=== PATIENT | female | born 1945 | race Caucasian/White ===

== ENCOUNTER 2025-01-18 11:04 | Emergency (ER) | payer MEDICARE, OTHER, SELFPAY ==
[2025-01-18 11:09] VITALS: BP 190/89
--- NOTE | 2025-01-18 11:43 | ED.GENMED ---
History of Present Illness
General
Chief Complaint: Facial Problem
Source: patient
Time Seen by Provider: 01/18/25 11:30
History of Present Illness
History of Present Illness:
Note:
CHIEF COMPLAINT(S)
Pain from the ear extending into the neck, difficulty opening mouth fully due to increased pain.
HISTORY OF PRESENT ILLNESS
The patient is an 79-year-old female presenting with pain extending from the ear into the jaw and neck, accompanied by difficulty in opening her mouth fully, which exacerbates the pain. She describes the pain as a dull throbbing pain that is
intermittently sharp. The symptoms began this morning around 3am and have been persistent since. The pain is reproducible upon palpation of the face, and she reports a clicking or punching sensation when trying to open her jaw. The patient has never
experienced anything like this before and does not recall any specific trigger or precipitating event such as trauma or dental work. She denies fever, tick bites although states she did have a tick crawling on her 2 weeks ago, or rashes. The patient
has a past medical history significant for cardiac surgery, which occurred in 2017 at [facility]. She is not on any blood-thinning medications and reports a history of bleeding ulcers, which limits her use of ibuprofen. She denies
neurovascular issues such as stroke or aneurysms including no family history of this as well
SOCIAL HISTORY
The patient does not use tobacco. She reports nightly 1 glass of wine, and denies the use of illegal substances.
REVIEW OF SYSTEMS
- Head and Neck: Pain from ear extending into the neck, difficulty opening the mouth fully, clicking or punching sensation in the jaw.
- Neurological: No history of strokes, aneurysms, or unusual neurological symptoms like facial weakness.
Past History
Past History
ED Past Medical History: Arrthythmia (Atrial fibrillation), HTN, Valvular disease and Other (Peptic ulcer disease, obstructive hypertrophic cardiac myopathy, DVT, PE)
ED Past Surgical History: Cardiac, Orthopedic and Other (partial hyseterectomy)
Social History
Tobacco: Former smoker
Alcohol: Daily
Drug: None
Personal:
Living: with family
Employment: Retired
Family History
Family History: Unable to obtain
Review of Systems
Review of Systems
All Other Systems: ROS reviewed and negative except as documented in HPI and ROS
Phy Exam
Physical Exam
Physical Exam:
GENERAL: Alert , in no apparent distress but does appear uncomfortable especially with any attempted mastication
HEAD: NCAT
EYE: pupils equal and reactive, 4mm bilateral
NECK: Supple, no significant adenopathy. no JVD
ENT: o/p clr, mmm. filling noted to left posterior molar, no dental abscesses. 2 finger trismus. Pain with palpation over left TMJ but with no overlying erythema/edema, tympanic membrane's clear bilaterally
CARDIAC: Regular rate and rhythm .
LUNGS: Clear breath sounds bilaterally, no acute respiratory distress, no wheezes/rales/rhonchi
NEUROLOGICAL: Alert and oriented
SKIN: Warm and dry, skin intact.
MUSCULOSKELETAL: well perfused.
PSYCH: Normal and appropriate interaction.
Scores
Heart Failure Risk
Heart Failure Risk Score: Not Applicable
Heart Score for Chest Pain Patients
STEMI patient?: Not applicable
Withdrawal Assessment of Alcohol
Withdrawal Assessment Completed?: Not applicable
Course
Orders/Labs/Results
Orders:
Orders
01/18/25 11:05
Electrocardiogram (*1) Urgent
Reason for Study: Other
Other Reason for Exam: jaw pain
EKG- Treatment ONCE
01/18/25 11:42
Oxycodone/Acetaminophen [Percocet 5/325] 1 tablet PO NOW STA
01/18/25 12:11
Basic Metabolic Panel Urgent
Complete Blood Count/With Diff Urgent
Lyme Progressive Urgent
Troponin I Urgent
Abnormal Lab Results
01/18/25
12:11
MCH 31.1 H pg
(27.0-31.0)
MPV 10.5 H fL
(7.4-10.4)
Lymphocytes % 17.7 L %
(20.5-51.1)
Chloride 110 H mmol/L
(98-107)
BUN 20 H mg/dl
(7-17)
01/18/25 12:11
01/18/25 12:11
Vital Signs
Initial and Last Documented VS:
Initial Vital Signs
Temp Pulse Resp BP Pulse Ox
98.3 F 88 16 190/89 98
01/18/25 11:09 01/18/25 11:09 01/18/25 11:09 01/18/25 11:09 01/18/25 11:09
Last Documented Vital Signs
Temp Pulse Resp BP Pulse Ox
98.3 F 71 13 156/66 95
01/18/25 11:09 01/18/25 13:45 01/18/25 13:45 01/18/25 13:00 01/18/25 13:45
MDM/Problems Addressed
Differential Diagnosis Includes:
1. Temporomandibular joint disorder
2. Trigeminal neuralgia
3. Vance palsy
4. Lyme disease
5. Dental abscess
6. Sinusitis
7. Mastoiditis
8. Vascular disorder
9. Ear infection
10. Facial nerve disorder
MDM/Problems Addressed:
Patient presenting to the emergency department for evaluation of left-sided facial pain that began earlier this morning, did not attempt any medications prior to arrival. Hypertension in triage noted. Given the reproducibility of the pain with
mastication as well as palpation of the TMJ I do suspect this is the most likely diagnosis however considering trigeminal neuralgia, given the tick on the patient the other day precursor to Cortes's palsy considered. Patient does have some previous
dental work noted but there is no obvious signs of dental abscesses. I am considering vascular etiology however thought to be less likely, consulting with attending, Dr. Louis, to discuss further imaging studies.
*Pulse Oximetry
Patient hypoxic: no
*Critical Care Note
Total Time (30-74mins, 75-104mins- exclusive of procedures): Not Applicable
Data Reviewed
Review of Other/Old Records Reveals: Labs and Records
Patient Management
Escalation/DeEscalation of care consider admission/obs:
Lab work reassuring. Patient noting moderate relief of pain following Percocet. Will prescribe her this to be discharged home. See Dr. Louis's note. Will also prescribe Zithromax to cover for any potential ENT infection. Stable for discharge
and outpatient follow-up.
ED Attending Note
-
Portions of this chart may have been created with voice recognition software.� Occasional wrong word or��sound alike� substitutions may have occurred due to the inherent limitations of voice recognition software.
Discharge Plan
Departure
Patient Disposition: Home (Routine Discharge)
Date of Disposition: 01/18/25
Time of Disposition: 12:53
Patient with high blood pressure during this ER visit?: Yes
Discharge Problem:
Jaw pain
Instructions: Temporomandibular Joint (TMJ) Disorders (DC)
Prescriptions:
New
oxycodone-acetaminophen [Percocet] 5-325 mg tablet
1 tab PO Q6HPRN PRN (Reason: pain) Qty: 8 0RF
azithromycin [Zithromax Z-Harpreet] 250 mg tablet
See Rx Instructions .ROUTE .COMPLEX Qty: 6 0RF
Rx Instructions:
Take 2 tabs day 1, Take 1 tab remaining 4 days
No Action
pantoprazole 40 MG tablet,delayed release (DR/EC)
40 mg PO DAILY
cyanocobalamin (vitamin B-12) 100 MCG tablet
1,000 mcg PO DAILY
cholecalciferol (vitamin D3) 2,000 UNITS tablet
2,000 units PO DAILY
atorvastatin 20 mg Tablet
20 mg PO QPM
metoprolol succinate 50 mg Tablet Extended Release 24 Hr
25 mg PO QPM
diphenhydramine-acetaminophen [Tylenol PM Extra Strength] 25-500 mg Tablet
1 tab PO HS PRN (Reason: sleep)
PreserVision AREDS-2 250-90-40-1 mg Capsule
1 tab PO AMHS
Artificial Tears (cmc) 1 % Drops
1 drp OPHTHALMIC (EYE) BID
acetaminophen [Tylenol] 325 mg Tablet
650 mg PO Q4H PRN (Reason: pain)
Referrals:
Tae Eaton MD [Family Provider, Family Practice]
Interventions
Interventions:
*Risk Screen - Suicide Last Done: 01/18/25 11:09
*General Assessment Last Done: 01/18/25 11:09
*Neglect/Abuse Screening Last Done: 01/18/25 11:09
*ED- Fall Risk Assessment Last Done: 01/18/25 12:17
*ED COVID-19 Vaccine History Last Done: 01/18/25 12:17
*Nursing Disposition Last Done: 01/18/25 13:53
ED- Neurological Assessment Last Done: 01/18/25 12:17
ED-Skin Assessment Last Done: 01/18/25 12:17
Discharge Date and Time
Discharge Date/Time: 01/18/25 14:02
Print Language: MACEDONIAN
[2025-01-18 12:06] VITALS: BP 145/74
[2025-01-18] MEDS: PERCOCET 5/325 1 TABLET PO (12:16)
[2025-01-18 12:17] VITALS: BMI 25.9
[2025-01-18 12:22] LABS: % Basophils 0.4 % (0-2); % Eosinophils 1.2 % (0-6); % Immature Granulocytes 0.3 % (0-0.5); % Lymphocytes 17.7 % (20.5-51.1); % Monocytes 8.1 % (1.7-9.3); % Neutrophils 72.3 % (42.2-75.2); Absolute Eosinophils 0.1 10^3/uL (0-0.7); Absolute Lymphocytes 1.3 10^3/uL (1.2-3.4); Absolute Monocytes 0.6 10^3/uL (0.1-0.6); Absolute Neutrophils 5.3 10^3/uL (1.4-6.5); Hematocrit 40.5 % (37.0-47.0); Hemoglobin 13.8 g/dL (12.0-16.0); Mean Corp Hgb Conc. 34.1 g/dL (33.0-37.0); Mean Corpuscular Hgb 31.1 pg (27.0-31.0); Mean Corpuscular Volume 91.2 fL (81.0-99.0); Mean Platelet Volume 10.5 fL (7.4-10.4); Nucleated Red Blood Cells % 0 %; Platelet Count 188 10^3/uL (130-400); Red Blood Cell Count 4.44 10^6/uL (4.20-5.40); Red Cell Dist. Width 13.5 % (11.5-14.5); White Blood Cell Count 7.3 10^3/uL (4.8-10.8)
[2025-01-18 12:35] LABS: Blood Urea Nitrogen 20 mg/dl (7-17); Calcium 9.3 mg/dl (8.4-10.2); Carbon Dioxide 26 mmol/L (22-30); Chloride 110 mmol/L (98-107); Estimated Creatinine Clearance 68 ml/min; Glucose 94 mg/dl (70-99); Potassium 3.9 mmol/L (3.5-5.1); Sodium 139 mmol/L (135-145); eGFR > 60.00
[2025-01-18 12:51] LABS: Troponin I < 0.012 ng/ml
[2025-01-18 13:00] VITALS: BP 156/66
[2025-01-20 13:45] LABS: Lyme Antibody Screen, EIA Presump. Positive (Negative)
== END 2025-01-18 14:02 | disposition home or self-care (01) ==
LOC: EMR 11:04
PROVIDERS: Physician Assistant Medical; EMERGENCY PHYSICIAN Emergency Medicine; FAMILY PHYSICIAN Family Medicine
DX: R68.84 Jaw pain (principal); I48.91 Unspecified atrial fibrillation; I10 Essential (primary) hypertension; I42.8 Other cardiomyopathies; Z87.11 Personal history of peptic ulcer disease; Z86.718 Personal history of other venous thrombosis and embolism; Z86.711 Personal history of pulmonary embolism; Z87.891 Personal history of nicotine dependence
CPT/HCPCS: 99283; 80048; 84484; 85025; 86617; 86618; 93005

== ENCOUNTER 2025-08-02 10:35 | Inpatient (IN) | payer MEDICARE, OTHER, SELFPAY ==
[2025-07-31] VITALS (7 sets, daily range): BP systolic 123–155; BP diastolic 57–84; BMI 26.1; BMI 25.2
[2025-07-31 15:47] LABS: Hematocrit 37.8 % (37.0-47.0); Hemoglobin 12.9 g/dL (12.0-16.0); Mean Corp Hgb Conc. 34.1 g/dL (33.0-37.0); Mean Corpuscular Volume 88.1 fL (81.0-99.0); Nucleated Red Blood Cells % 0 %; Platelet Count 174 10^3/uL (130-400); Red Cell Dist. Width 13.9 % (11.5-14.5)
--- NOTE | 2025-07-31 16:07 | ED.GENMED ---
History of Present Illness
<Diane Carpio FUSE COILER - Last Filed: 07/31/25 18:20>
General
Chief Complaint: Weakness
Source: patient
Exam Limitations: none
Time Seen by Provider: 07/31/25 16:06
Nursing documentation reviewed up to this point in time: agreed with
History of Present Illness
History of Present Illness:
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
democrat. Had chills but no fever. Denies CP, does have WHYTE. Denies n/v/d/c. Denies abdominal pain. No known sick contacts.
Past History
<Diane Carpio, FUSE COILER - Last Filed: 07/31/25 18:20>
Past History
ED Past Medical History: Arrthythmia (Atrial fibrillation), HTN, Valvular disease and Other (Peptic ulcer disease, obstructive hypertrophic cardiac myopathy, DVT, PE)
ED Past Surgical History: Cardiac, Orthopedic and Other (partial hyseterectomy)
Social History
Tobacco: Former smoker
Alcohol: Daily
Drug: None
Personal:
Living: with family
Employment: Retired
Family History
Family History: Unable to obtain
Review of Systems
<Diane Carpio, FUSE COILER - Last Filed: 07/31/25 18:20>
Review of Systems
Allergies reviewed?: Yes
All Other Systems: ROS reviewed and negative except as documented in HPI and ROS
Phy Exam
<Diane Carpio, FUSE COILER - Last Filed: 07/31/25 18:20>
Physical Exam
Physical Exam:
GENERAL: No acute distress. A&Ox3.
CONSTITUTIONAL: Afebrile.
EYES: clear, conjunctivae normal
ENMT: moist mucus membranes, Pharynx nl, mildly stuffy nasal voice.
RESPIRATORY: Regular respirations, nonlabored, lungs clear.
CARDIOVASCULAR: Regular rate and rhythm, no murmurs, no rubs.
GI: Soft, nontender, normal BS
MUSCULOSKELETAL: Moves with ease. Well perfused.
SKIN: Warm, dry, pink
PSYCH: Normal mood and affect. Well kept, interactive and appropriate
NEUROLOGIC: Awake, alert and oriented. No focal neurological deficits
Course
<Diane Carpio, FUSE COILER - Last Filed: 07/31/25 18:20>
Orders/Labs/Results
Orders:
Orders
07/31/25 14:27
Electrocardiogram (*1) Urgent
Reason for Study: Vertigo / Dizzy
EKG- Treatment ONCE
07/31/25 15:21
CR Chest - 2 Views Urgent
Comment:
Reason For Exam: respiratory distress
07/31/25 15:38
Complete Blood Count/With Diff Urgent
Comprehensive Metabolic Panel Urgent
Lactic Acid Q4H
Comment: WITH 1ST SET OF BLOOD CULTURES,CANCEL 2ND LACTIC ACID IF FIRST <2
NT-proBNP Urgent
Influenza A+B Rapid Molecular Urgent
JENNIFER Source: Nasal Swab
Specimen Description:
07/31/25 16:34
Oseltamivir Phosphate [Tamiflu] 75 mg PO NOW STA
07/31/25 17:03
COVID-19 Antigen Urgent
Source: Nasal Swab
07/31/25 17:26
Admit/Transfer Patient As Directed
Co-Sign Provider:
Level of Care: Observation services
Assign to:: Medical/Surgical
Physician / Group: yaritza
Diagnosis: influenza
Code Status As Directed
Resuscitation Status: Do not resuscitate
Reached after discussion with pt or family/Healthcare POA: Yes
DNR Bracelet Application ONCE
PRN Pain Medication Management As Directed
May give lesser potent ordered pain med per pt: Yes
preference::
Protocol:: Medication orders for pain may be administered in a
manner that supports deferring to patient preference
when the pt is:
- Requesting an ordered lesser potent pain medication.
Least to most potent pain medications are defined
as: acetaminophen < NSAID < tramadol < opioids
(morphine, oxycodone, hydromorphone).
- Requesting a lesser dose of the same medication IF
ORDERED.
- Requesting a less intrusive route of administration
if both routes are prescribed by the provider (PO <
IV).
07/31/25 19:30
Lactic Acid Q4H
Comment: WITH 1ST SET OF BLOOD CULTURES,CANCEL 2ND LACTIC ACID IF FIRST <2
Abnormal Lab Results
07/31/25
15:38
Absolute Lymphs (auto) 0.3 L 10^3/uL
(1.2-3.4)
Neutrophils % 89.4 H %
(42.2-75.2)
Lymphocytes % 4.0 L %
(20.5-51.1)
Sodium 134 L mmol/L
(135-145)
Total Protein 6.2 L g/dl
(6.3-8.2)
07/31/25 15:38
07/31/25 15:38
Vital Signs
Initial and Last Documented VS:
Initial Vital Signs
Temp Pulse Resp BP Pulse Ox
98.2 F 94 18 140/68 94
07/31/25 14:23 07/31/25 14:23 07/31/25 14:23 07/31/25 14:23 07/31/25 14:23
Last Documented Vital Signs
Temp Pulse Resp BP Pulse Ox
98.2 F 95 28 149/64 93
07/31/25 14:23 07/31/25 17:00 07/31/25 16:30 07/31/25 16:00 07/31/25 16:43
<Cheyenne Quiroga MD - Last Filed: 07/31/25 17:04>
Orders/Labs/Results
Orders:
Orders
07/31/25 14:27
Electrocardiogram (*1) Urgent
Reason for Study: Vertigo / Dizzy
EKG- Treatment ONCE
07/31/25 15:21
CR Chest - 2 Views Urgent
Comment:
Reason For Exam: respiratory distress
07/31/25 15:38
Complete Blood Count/With Diff Urgent
Comprehensive Metabolic Panel Urgent
Lactic Acid Q4H
Comment: WITH 1ST SET OF BLOOD CULTURES,CANCEL 2ND LACTIC ACID IF FIRST <2
NT-proBNP Urgent
Influenza A+B Rapid Molecular Urgent
JENNIFER Source: Nasal Swab
Specimen Description:
07/31/25 16:34
Oseltamivir Phosphate [Tamiflu] 75 mg PO NOW STA
07/31/25 17:03
COVID-19 Antigen Urgent
Source: Nasal Swab
07/31/25 17:26
Admit/Transfer Patient As Directed
Co-Sign Provider:
Level of Care: Observation services
Assign to:: Medical/Surgical
Physician / Group: yaritza
Diagnosis: influenza
Code Status As Directed
Resuscitation Status: Do not resuscitate
Reached after discussion with pt or family/Healthcare POA: Yes
DNR Bracelet Application ONCE
PRN Pain Medication Management As Directed
May give lesser potent ordered pain med per pt: Yes
preference::
Protocol:: Medication orders for pain may be administered in a
manner that supports deferring to patient preference
when the pt is:
- Requesting an ordered lesser potent pain medication.
Least to most potent pain medications are defined
as: acetaminophen < NSAID < tramadol < opioids
(morphine, oxycodone, hydromorphone).
- Requesting a lesser dose of the same medication IF
ORDERED.
- Requesting a less intrusive route of administration
if both routes are prescribed by the provider (PO <
IV).
07/31/25 19:30
Lactic Acid Q4H
Comment: WITH 1ST SET OF BLOOD CULTURES,CANCEL 2ND LACTIC ACID IF FIRST <2
Abnormal Lab Results
07/31/25
15:38
Absolute Lymphs (auto) 0.3 L 10^3/uL
(1.2-3.4)
Neutrophils % 89.4 H %
(42.2-75.2)
Lymphocytes % 4.0 L %
(20.5-51.1)
Sodium 134 L mmol/L
(135-145)
Total Protein 6.2 L g/dl
(6.3-8.2)
07/31/25 15:38
07/31/25 15:38
Vital Signs
Initial and Last Documented VS:
Initial Vital Signs
Temp Pulse Resp BP Pulse Ox
98.2 F 94 18 140/68 94
07/31/25 14:23 07/31/25 14:23 07/31/25 14:23 07/31/25 14:23 07/31/25 14:23
Last Documented Vital Signs
Temp Pulse Resp BP Pulse Ox
98.2 F 95 28 149/64 93
07/31/25 14:23 07/31/25 17:00 07/31/25 16:30 07/31/25 16:00 07/31/25 16:43
<Diane Gardner Day, FUSE COILER - Last Filed: 07/31/25 18:20>
MDM/Problems Addressed
Differential Diagnosis Includes:
Covid, Flu, PNA
MDM/Problems Addressed:
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
democrat. Had chills but no fever. Denies CP, does have WHYTE. Denies n/v/d/c. Denies abdominal pain. No known sick contacts.
Afebrile, NAD
CBC normal
CMP Normal
Covid neg
Flu A positive
BNP WNL
4:30 PM:
Patient out of bed and ambulated to the bathroom, desaturated to 84%, back in bed and when resting O2 is 90 on room air, placed on 2 L nasal cannula oxygen
Plan: Tamiflu added and admit.
Flu A with hypoxemia
Hospitalist notified of admission.
CXR official read pending
<Diane Carpio FUSE COILER - Last Filed: 07/31/25 18:20>
*Pulse Oximetry
SaO2: 97
Nasal Cannula flow liters per minute: 2
Oxygen Mode of Delivery: Room air
Patient hypoxic: no
*EKG
EKG Intrepretation Date: 07/31/25
Interpretation: abnormal
Heart Rate: 90
Rate: tachycardiac
Rhythm: sinus
Milfay: normal axis
Interval: normal interval
QRS Pattern: wide non-specific
Ischemia: no ischemia
*Critical Care Note
Total Time (30-74mins, 75-104mins- exclusive of procedures): Not Applicable
ED Attending Note
<Diane Carpio, FUSE COILER - Last Filed: 07/31/25 18:20>
-
Portions of this chart may have been created with voice recognition software.� Occasional wrong word or��sound alike� substitutions may have occurred due to the inherent limitations of voice recognition software.
<Cheyenne Quiroga MD - Last Filed: 07/31/25 17:04>
ED Attending Note
Patient seen and examined by attending physician: Yes
I performed the substantive portion of visit, reviewed & personally made and approve the management plan that is documented in note by myself or LYNETTE.: Yes
ED Attending Note:
I have seen and evaluated the patient with a [id number] encounter. I have spoken to the [LYNETTE] and involved in the medical history, the physical exam, medical decision making.
Evaluation and management service: agree unless noted differently below.
Results interpretation: agree unless noted differently below.
80-year-old woman presenting to the emergency department with nausea cough dizziness and weakness for the past day. Patient denies any fevers chills. No chest pain. No shortness of breath. No known sick contacts. My evaluation patient is
resting comfortably. She does appear congested. Lungs are clear to auscultation bilaterally. Abdomen soft nondistended nontender. Concern for viral illness such as the flu versus dehydration or metabolic derangements. Blood work was obtained
prior to my evaluation. She is flu positive. Upon ambulation patient with significant desaturation. Patient will need admission. Will give Tamiflu.
Discharge Plan
Departure
Patient Disposition: Admit
Date of Disposition: 07/31/25
Time of Disposition: 16:51
Admit to: Med/Surg
Presentation/result/management discussed w/ accepting MD/DO: Hospitalist
Patient with high blood pressure during this ER visit?: No
Condition: Fair
Covid-19: Negative COVID-19
Discharge Problem:
Influenza A, Acute hypoxic respiratory failure
Interventions
Interventions:
*General Assessment Last Done: 07/31/25 14:43
*Neglect/Abuse Screening Last Done: 07/31/25 14:43
*ED COVID-19 Vaccine History Last Done: 07/31/25 14:42
*ED Influenza Vaccine History Last Done: 07/31/25 14:42
[facility] Risk Assessment Tool Last Done: 07/31/25 14:42
ED- Cardiac Assessment Last Done: 07/31/25 14:44
ED- Neurological Assessment Last Done: 07/31/25 14:47
ED- Pulmonary Assessment Last Done: 07/31/25 14:46
[2025-07-31 16:11] LABS: ALT (SGPT) 21 U/L (0-35); AST (SGOT) 27 U/L (14-36); Albumin 3.7 g/dl (3.5-5.0); Alkaline Phosphatase 113 U/L (38-126); Blood Urea Nitrogen 14 mg/dl (7-17); Calcium 9.0 mg/dl (8.4-10.2); Carbon Dioxide 26 mmol/L (22-30); Chloride 104 mmol/L (98-107); Estimated Creatinine Clearance 67 ml/min; Glucose 97 mg/dl (70-99); Potassium 3.8 mmol/L (3.5-5.1); Sodium 134 mmol/L (135-145); Total Protein 6.2 g/dl (6.3-8.2); eGFR > 60.00
[2025-07-31] MEDS: TAMIFLU 75 MG PO (16:57)
--- NOTE | 2025-07-31 17:28 | HPS.HSE ---
Family Physician
-
Family Physician: Tae Eaton
Chief Complaint
-
cough
History of Present Illness
80-year-old female past medical history of paroxysmal atrial fibrillation, hypertrophic obstructive cardiomyopathy status post myomectomy/MAZE procedure, hypertension, DVT in 2016, pulmonary embolism in 2018, hyperlipidemia, peptic ulcer disease,
presenting with nausea, weakness and dizziness and cough, sore throat starting last evening after attending [employer] party. Has chills without fever. No chest pain. Does have shortness of breath with exertion. No vomiting or diarrhea. No
abdominal pain. No known sick contacts.
She does drink alcohol occasionally. Denies smoking.
Medical History
Past Medical History
Past Medical History: Reports Other (paroxysmal atrial fibrillation, hypertrophic obstructive cardiomyopathy status post myomectomy/MAZE procedure, hypertension, DVT in 2016, pulmonary embolism in 2018, hyperlipidemia, peptic ulcer disease,)
Past Surgical History: Reports None
Social History
Tobacco: Non-smoker
Alcohol: Occasional
Drug: None
Family History
Family History: Not pertinent
Allergies / Home Medications
Allergies reflects when Allergies were last updated in [facility].
Home Medications with original date entered in [facility]
Allergy/Medication List:
Allergies
Allergy/AdvReac Type Severity Reaction Status Date / Time
cephalexin monohydrate (From Allergy Rash, Verified 01/18/25 11:05
Keflex) Swelling
hydrochlorothiazide Allergy Rash Verified 01/18/25 11:05
levofloxacin (From Levaquin) Allergy tendonitis Verified 01/18/25 11:05
NSAIDS (Non-Steroidal Allergy history of Verified 01/18/25 11:05
Anti-Inflamma gastric
ulcers
Penicillins Allergy rash and Verified 01/18/25 11:05
swelling
Home Medications
pantoprazole 40 mg tablet,delayed release 40 mg PO DAILY 01/16/17
cholecalciferol (vitamin D3) 50 mcg (2,000 unit) tablet 2,000 units PO DAILY 12/10/18
cyanocobalamin (vitamin B-12) 100 mcg tablet 1,000 mcg PO DAILY 12/10/18
atorvastatin 20 mg tablet 20 mg PO QPM 03/01/22
carboxymethylcellulose sodium 1 % eye drops (Artificial Tears (carboxymethylcellulose)) 1 drp ophthalmic (eye) BID 03/01/22
diphenhydramine 25 mg-acetaminophen 500 mg tablet (Tylenol PM Extra Strength) 1 tab PO HS PRN sleep 03/01/22
metoprolol succinate 50 mg tablet,extended release 24 hr 25 mg PO QPM 03/01/22
vit C 250 mg-vit E 90 mg-zinc 40 mg-copper 1 [id number] capsule (PreserVision AREDS-2) 1 tab PO AMHS 03/01/22
acetaminophen 325 mg tablet (Tylenol) 650 mg PO Q4H PRN pain 05/03/22
azithromycin 250 mg tablet (Zithromax Z-Harpreet) See Rx Instructions PO .COMPLEX #6 tabs 01/18/25
oxycodone-acetaminophen 5 mg-325 mg tablet (Percocet) 1 tab PO Q6HPRN PRN pain #8 tabs 01/18/25
Review of Systems
-
History Source: Patient
A 12 point ROS was completed and negative except as noted: Yes
Constitutional: Reports No Symptoms
EENT: Reports No Symptoms
Respiratory: Reports See HPI
Cardiac: Reports No Symptoms
Abdomen/GI: Reports No Symptoms
: Reports No Symptoms
Musculoskeletal: Reports No Symptoms
Skin: Reports No Symptoms
Neurological: Reports No Symptoms
Endocrine: Reports No Symptoms
Hematologic/Lymphatic: Reports No Symptoms
Psych: Reports No Symptoms
Physical Exam
Vital Signs
Vital Signs
Temp Pulse Resp BP Pulse Ox
98.2 F 95 28 149/64 93
07/31/25 14:23 07/31/25 17:00 07/31/25 16:30 07/31/25 16:00 07/31/25 16:43
Physical Exam
General: Well Developed, Well Nourished and No Apparent Distress
HEENT: NormoCephalic, Moist mucous membranes and Atraumatic
Respiratory: Clear
Cardiac: S1/S2 and Regular Rhythm; No Murmur or Rub
GI: Soft, Non Tender, Non Distended and Normal Bowel Sounds; No Organomegaly
Rectal: Deferred by Provider
Musculoskeletal: No Clubbing, No Cyanosis and No Edema
Skin: No Rash
Neuro: Nonfocal/grossly intact
Laboratory Results
-
07/31/25 15:38
07/31/25 15:38
Laboratory Results
Lactic Acid 0.8 mmol/L (0.7-2.0) 07/31/25 15:38
Total Bilirubin 0.8 mg/dl (0.2-1.3) 07/31/25 15:38
AST 27 U/L (14-36) 07/31/25 15:38
ALT 21 U/L (0-35) 07/31/25 15:38
Alkaline Phosphatase 113 U/L (38-126) 07/31/25 15:38
Data Reviewed
-
Lab Data: Labs Reviewed by me
Old Records: Reviewed
Impression/Plan
-
IMPRESSION:
PLAN:
# Influenza A infection
- Chest x-ray does not appear to show any infiltrates, report pending
-Requiring 2 L oxygen
-Cardiac BNP 1600
- Tamiflu
Paroxysmal atrial fibrillation
- Continue metoprolol
Hypertrophic obstructive cardiomyopathy status post myomectomy/MAZE procedure
Essential hypertension
History of DVT in 2016
Pulmonary embolism in 2018
Hyperlipidemia
- Continue statin
Peptic ulcer disease
DNR/DNI
DVT prophylaxis�Lovenox
Regular diet
[2025-07-31] MEDS: TYLENOL 650 MG PO (18:26)
[2025-07-31] MEDS: ZOFRAN 4 MG IV (18:27)
[2025-07-31 18:33] LABS: COVID-19 Antigen Negative (Negative)
[2025-07-31] MEDS: REFRESH EYE DROPS (PF) 1 DROPS BOTH EYES (20:36)
[2025-07-31] MEDS: LOVENOX 40 MG SC (20:36)
[2025-07-31] MEDS: LIPITOR 20 MG PO (22:27)
[2025-07-31] MEDS: NORVASC 2.5 MG PO (23:40)
--- NOTE | 2025-08-01 07:24 | W.PN.HOSP.TC ---
Today's Communication/Plan
-
cont tamiflu
PT eval
wean O2 supplementation as tolerated
Assessment / Plan
Assessment / Plan
Physical Exam
General: no acute distress, appears comfortable at this time
HEENT: NormoCephalic, Moist mucous membranes and Atraumatic
Respiratory: Clear
Cardiac: S1/S2 and Regular Rhythm; No Murmur or Rub
GI: Soft, Non Tender, Non Distended and Normal Bowel Sounds; No Organomegaly
Musculoskeletal: No Clubbing, No Cyanosis and No Edema
Skin: No Rash
Neuro: AOx3 conversant coherent
Psych: Calm
80F pAfib HOCM myomectomy/MAZE HTN HLD DVT/PE PUD here for Flu
# Influenza A infection
- Chest x-ray does not appear to show any infiltrates, report pending
-Wean O2 supplementation as tolerated
-Cardiac BNP 1600 nonspecific for age
- cont Tamiflu
-PT eval
Paroxysmal atrial fibrillation
- Continue metoprolol
Hypertrophic obstructive cardiomyopathy status post myomectomy/MAZE procedure
Essential hypertension
History of DVT in 2016
Pulmonary embolism in 2018
Hyperlipidemia
- Continue statin
Peptic ulcer disease
DNR/DNI
DVT prophylaxis�Lovenox
Regular diet
discussed with patient and patient's Silvano
I spent a total of 45 minutes with the patient or on the floor. More than 50% of this time involved counseling and coordination of care.
Anticipated Discharge: 24 - 48 hours
Subjective/Interval History
-
Date of Service: August 01, 2025
No acute distress, resting comfortably in bed, stable respiratory status on nasal cannula supplementation. Endorses generalized weakness/fatigue
Objective Data
-
Labs:
Laboratory Results
08/01/25
06:00
WBC Pending
Hgb Pending
Hct Pending
Plt Count Pending
Sodium Pending
Potassium Pending
Chloride Pending
Carbon Dioxide Pending
BUN Pending
Creatinine Pending
Glucose Pending
Calcium Pending
Total Bilirubin Pending
AST Pending
ALT Pending
Alkaline Phosphatase Pending
Vital Signs:
Vital Signs
Temp Pulse Resp BP Pulse Ox
98.9 F 75 18 123/61 96
07/31/25 23:23 07/31/25 23:40 07/31/25 23:23 07/31/25 23:40 08/01/25 03:32
[2025-08-01 07:35] VITALS: BP 132/68
[2025-08-01] MEDS: VITAMIN B-12 1000 MCG PO (08:20)
[2025-08-01] MEDS: REFRESH EYE DROPS (PF) 1 DROPS BOTH EYES ×2 (08:20→20:00)
[2025-08-01] MEDS: TAMIFLU 75 MG PO ×2 (08:21→20:00)
[2025-08-01] MEDS: VITAMIN D3 (cholecalciferol) 50 MCG PO (08:21)
[2025-08-01 09:20] LABS: Hematocrit 37.4 % (37.0-47.0); Hemoglobin 12.5 g/dL (12.0-16.0); Mean Corp Hgb Conc. 33.4 g/dL (33.0-37.0); Mean Corpuscular Volume 89.9 fL (81.0-99.0); Nucleated Red Blood Cells % 0 %; Platelet Count 156 10^3/uL (130-400); Red Cell Dist. Width 13.9 % (11.5-14.5)
[2025-08-01 09:28] LABS: ALT (SGPT) 23 U/L (0-35); AST (SGOT) 32 U/L (14-36); Albumin 3.3 g/dl (3.5-5.0); Alkaline Phosphatase 89 U/L (38-126); Blood Urea Nitrogen 15 mg/dl (7-17); Calcium 8.6 mg/dl (8.4-10.2); Carbon Dioxide 26 mmol/L (22-30); Chloride 103 mmol/L (98-107); Estimated Creatinine Clearance 59 ml/min; Glucose 86 mg/dl (70-99); Potassium 3.8 mmol/L (3.5-5.1); Sodium 132 mmol/L (135-145); Total Protein 5.7 g/dl (6.3-8.2); eGFR > 60.00
[2025-08-01 15:25] VITALS: BP 125/77
[2025-08-01 15:36] VITALS: BP 138/68; PULSE 77
--- NOTE | 2025-08-01 15:57 | CM ---
Patient seen at bedside on . Patient stated that she lives in a one story home with no DME. Patient stated that her PCP is Dr. Eaton. Patient uses the [email or web address]. Patient plan is for discharge home with no needs anticipated. Patient is
OBS/PRADO and form reviewed with her. CM will continue to follow for discharge planning needs.
Plan; home with no needs anticipated.
[2025-08-01] MEDS: LOVENOX SC (17:47)
[2025-08-01] MEDS: TYLENOL 650 MG PO (19:58)
[2025-08-01] MEDS: ANESTHETIC LOZENGE 1 LOZENGE PO (20:52)
[2025-08-01] MEDS: DULCOLAX 5 MG PO (20:53)
[2025-08-01] MEDS: LIPITOR 20 MG PO (22:48)
[2025-08-01] MEDS: NORVASC 2.5 MG PO (22:48)
[2025-08-01 23:30] VITALS: BP 140/78
[2025-08-02] MEDS: TYLENOL 650 MG PO (04:34)
[2025-08-02 07:00] VITALS: BP 135/75
--- NOTE | 2025-08-02 07:10 | W.PN.HOSP.TC ---
Today's Communication/Plan
-
discharge
Assessment / Plan
Assessment / Plan
Physical Exam
General: no acute distress, appears comfortable at this time
HEENT: NormoCephalic, Moist mucous membranes and Atraumatic
Respiratory: Clear stable respiratory status on room air
Cardiac: S1/S2 and Regular Rhythm; No Murmur or Rub
GI: Soft, Non Tender, Non Distended and Normal Bowel Sounds; No Organomegaly
Musculoskeletal: No Clubbing, No Cyanosis and No Edema
Skin: No Rash
Neuro: AOx3 conversant coherent
Psych: Calm
80F pAfib HOCM myomectomy/MAZE HTN HLD DVT/PE PUD here for Flu
# Influenza A infection
- Chest x-ray does not appear to show any infiltrates, report pending
-weaned off oxygen supplementation, stable respiratory status on room air
-Cardiac BNP 1600 nonspecific for age
- cont Tamiflu 5 days treatment recommended 08/01-08/05
-PT eval appreciated home services vs no needs
Paroxysmal atrial fibrillation
- Continue metoprolol
Hypertrophic obstructive cardiomyopathy status post myomectomy/MAZE procedure
Essential hypertension
History of DVT in 2016
Pulmonary embolism in 2018
Hyperlipidemia
- Continue statin
Peptic ulcer disease
DNR/DNI
DVT prophylaxis�Lovenox
Regular diet
Medically stable for discharge home with home services and outpatient follow up recommendations
Total Time Preparing Discharge __40 minutes including examination of the patient, summary of the hospital stay, instructions for continuing care to all relevant caregivers; and preparation of discharge records, prescriptions, and referral
forms if necessary.
Anticipated Discharge: Today
Subjective/Interval History
-
Date of Service: August 02, 2025
No acute distress, resting comfortably in bed. Overall reports feeling well. Breathing improved, weakness improved, able to ambulate without need for assist device. Denies new acute issues. Looking forward to going home.
Objective Data
-
Labs:
Laboratory Results
08/02/25
06:00
WBC Pending
Hgb Pending
Hct Pending
Plt Count Pending
Sodium Pending
Potassium Pending
Chloride Pending
Carbon Dioxide Pending
BUN Pending
Creatinine Pending
Glucose Pending
Calcium Pending
Vital Signs:
Vital Signs
Temp Pulse Resp BP Pulse Ox
98.1 F 71 18 140/78 98
08/01/25 23:30 08/01/25 23:30 08/01/25 23:30 08/01/25 23:30 08/02/25 02:44
I&O
08/01/25 08/02/25 08/03/25
06:59 06:59 06:59
Intake Total 1320 / 1320
Balance 1320 / 1320
[2025-08-02 07:46] LABS: Hematocrit 39.7 % (37.0-47.0); Hemoglobin 13.6 g/dL (12.0-16.0); Mean Corp Hgb Conc. 34.3 g/dL (33.0-37.0); Mean Corpuscular Volume 89.6 fL (81.0-99.0); Platelet Count 157 10^3/uL (130-400); Red Cell Dist. Width 13.5 % (11.5-14.5)
[2025-08-02 08:15] LABS: Blood Urea Nitrogen 16 mg/dl (7-17); Calcium 8.9 mg/dl (8.4-10.2); Carbon Dioxide 27 mmol/L (22-30); Chloride 103 mmol/L (98-107); Estimated Creatinine Clearance 59 ml/min; Glucose 85 mg/dl (70-99); Magnesium 2.1 mg/dl (1.6-2.3); Potassium 3.9 mmol/L (3.5-5.1); Sodium 135 mmol/L (135-145); eGFR > 60.00
[2025-08-02] MEDS: VITAMIN B-12 1000 MCG PO (09:16)
[2025-08-02] MEDS: TAMIFLU 75 MG PO (09:16)
[2025-08-02] MEDS: REFRESH EYE DROPS (PF) 1 DROPS BOTH EYES (09:16)
[2025-08-02] MEDS: VITAMIN D3 (cholecalciferol) 50 MCG PO (09:16)
[2025-08-02] MEDS: DULCOLAX 5 MG PO (09:16)
--- NOTE | 2025-08-02 13:52 | W.DCSUMMARY ---
Discharge Summary
Discharge Data
Date of Admission: 07/31/25
Date of Discharge: 08/02/25
-
Pending Results: No
Discharge Plan
-
Patient Disposition: Home with Home Care
Discharge Diagnosis/Procedures: Flu
Condition: Fair
Diet: Regular
Activity: As tolerated
Driving Restrictions: As prior to admission
Bathing Restrictions: None
Activity Restrictions/Additional Instructions:
Follow up with primary care provider in 1 week of discharge.
Tamiflu (oseltamivir) prescribed for Flu, to continue through 08/05/25 then stop.
Please take medications as prescribed/recommended and follow up with primary care provider and/or other healthcare provider involved in your care for further adjustments to your medication regimen as necessary.
Referrals:
Tae Eaton MD [Family Provider, [facility]] - in one week
Prescriptions:
New
oseltamivir 75 mg Capsule
75 mg PO BID Qty: 7 0RF
Rx Instructions:
08/05/25 last day for Tamiflu (oseltamivir)
Continued
atorvastatin 20 mg Tablet
20 mg PO HS
cyanocobalamin (vitamin B-12) 1,000 mcg Tablet
1,000 mcg PO DAILY
amlodipine 2.5 mg Tablet
2.5 mg PO HS
acetaminophen [Tylenol Extra Strength] 500 mg Tablet
500 mg PO BIDPRN PRN (Reason: mild pain)
bisacodyl [Dulcolax (bisacodyl)] 5 mg Tablet,Delayed Release (Dr/Ec)
5 mg PO Q72H
peg 400-propylene glycol (PF) 0.4-0.3 % Dropperette
1 drp BOTH EYES BID
cholecalciferol (vitamin D3) 50 mcg (2,000 unit) Tablet
50 mcg PO DAILY
PreserVision AREDS-2 250-90-40-1 mg Capsule
1 cap PO BID
Discharge Orders:
Discharge Patient (As Directed); Ordered 08/02/25
Ordered By: Jasmin Wynn
Discharge Date and Time
Print Language: DIVEHI
--- NOTE | 2025-08-02 14:33 | CM ---
Pt is discharged today with [facility]N. Pt had [facility] in the past and would to have a referral place to them for care. Referral placed in [facility]
Plan: DC to home with [facility]
[2025-08-02 14:49] VITALS: BP 149/71
== END 2025-08-02 15:45 | disposition home health service (06) | DRG 195 ==
LOC: 2 NORTH 10:35
PROVIDERS: Emergency Medicine; ADMITTING PHYSICIAN Hospitalist; ATTENDING PHYSICIAN Internal Medicine; EMERGENCY PHYSICIAN Student in an Organized Health Care Education/Training Program; FAMILY PHYSICIAN Family Medicine
DX: J10.1 Influenza due to other identified influenza virus with other respiratory manifestations (principal); Z87.891 Personal history of nicotine dependence; Z66 Do not resuscitate; Z11.52 Encounter for screening for COVID-19; I48.0 Paroxysmal atrial fibrillation; I10 Essential (primary) hypertension; E78.5 Hyperlipidemia, unspecified; K27.9 Peptic ulcer, site unspecified, unspecified as acute or chronic, without hemorrhage or perforation; Z86.711 Personal history of pulmonary embolism
CPT/HCPCS: 71046; 80048; 80053; 83605; 83735; 83880; 84100; 85025; 85027; 87502; 87811; 93005; 97116; 97162; 99285; G0378